=== PATIENT | male | born 1950 | race Caucasian/White ===

== ENCOUNTER 2021-01-11 23:39 | Inpatient (IN) | payer MEDICARE, MEDICAID ==
[2021-01-12 00:12] LABS: #Monocytes 1.7 10x3/uL (0.0-1.1); %Basophils 0.1 % (0.0-2.0); %Eosinophils 0.1 % (0.0-6.0); %Lymphocytes 10.2 % (18.0-47.0); %Neutrophils 78.2 % (40.0-75.0); Hemoglobin 14.4 g/dL (13.5-17.5); Mean Corpuscular Hemoglobin 29.3 pg (27.0-33.0); Mean Corpuscular Volume 94.5 fl (81.2-95.1); Mean Platelet Volume 11.1 fl (7.4-10.4); Platelet Count 295 10x3/uL (150-450); RBC Distribution Width 15.9 % (11.5-14.5); Red Blood Cell (RBC) Count 4.92 10x6/uL (4.32-5.72); White Blood Cell (WBC) Count 15.3 10x3/uL (3.5-10.5)
[2021-01-12] MEDS ORDERED: Nitroglycerin 2% Ointment 1 INCH/1 GM Packet ONE (00:18)
[2021-01-12] MEDS ORDERED: Furosemide 40 MG/4 ML VIAL ONE (00:18)
[2021-01-12 01:07] LABS: ALT (SGPT) 452 U/L (8-55); AST (SGOT) 271 U/L (5-34); Albumin 3.6 g/dL (3.4-4.8); Alkaline Phosphatase 146 U/L (40-110); Anion Gap 18 mmol/L (10-20); BUN (Urea Nitrogen) 49 mg/dL (8.4-25.7); Bilirubin, Total 1.6 mg/dL (0.2-1.2); Calc. Creatinine Clearance 0 mL/min (70-130); Calcium 8.6 mg/dL (7.8-10.44); Carbon Dioxide 23 mmol/L (23-31); Chloride 105 mmol/L (98-107); Glucose 78 mg/dL (83-110); Potassium 4.5 mmol/L (3.5-5.1); Protein, Total 6.6 g/dL (5.8-8.1); Sodium 141 mmol/L (136-145)
[2021-01-12 01:36] LABS: CKMB 20.7 ng/mL (0-6.6)
[2021-01-12] MEDS ORDERED: Aspirin Chewable 81 MG TAB ONE (02:12)
[2021-01-12] MEDS ORDERED: Lorazepam 2 MG/ML VIAL SLOW IVP PRN (03:18)
[2021-01-12] MEDS ORDERED: guaiFENesin 100 MG/5 ML UDCUP PO SCH (03:30)
[2021-01-12] MEDS: methylPREDNISolone Sod Succ 40 MG VIAL IVP SCH ×3 (04:35→22:00)
[2021-01-12 05:37] LABS: Bilirubin Neg (Negative); Blood, Urine 25 (Negative); Clarity Slightly Cloudy (Clear); Glucose, Urine (Dipstick) Normal (Negative); Ketone, Urine Negative (Negative); Leukocyte Negative (Negative); Nitrite Negative (Negative); Protein, Urine (Dipstick) 100 mg/dl (Neg-Trace); Urobilinogen Normal mg/dL (Less than 2)
[2021-01-12 05:55] LABS: Bacteria/HPF 1+ HPF (None Seen); Squamous Epithelial 0-3 HPF (0-3); WBC/HPF 0-3 HPF (0-3)
[2021-01-12] MEDS: Furosemide 40 MG/4 ML VIAL SLOW IVP SCH ×2 (06:01→15:03)
[2021-01-12 06:04] LABS: Troponin I 0.094 ng/mL (< 0.028)
[2021-01-12] MEDS: Nicotine 21 MG PATCH TD SCH (09:50)
[2021-01-12] MEDS: Enoxaparin Sodium 30 MG/0.3 ML SYRINGE SC SCH ×2 (09:50→10:20)
[2021-01-12] MEDS: guaiFENesin ER 600 MG TAB PO SCH ×2 (09:50→22:00)
[2021-01-12] MEDS: Aspirin Chewable 81 MG TAB PO SCH (09:50)
[2021-01-12] MEDS: Lisinopril 5 MG TAB PO SCH (09:50)
[2021-01-12] MEDS: Carvedilol 3.125 MG TAB PO SCH ×2 (09:50→22:00)
[2021-01-12] MEDS: Spironolactone 25 MG TAB PO SCH (09:53)
[2021-01-12] MEDS: Mometasone/Formoterol 200/5 60 PUFF INH SCH ×2 (10:20→20:23)
[2021-01-12 10:51] LABS: Troponin I 0.084 ng/mL (< 0.028)
[2021-01-12 10:54] LABS: CKMB 17.1 ng/mL (0-6.6)
[2021-01-12 12:29] LABS: SARS-CoV-2 PCR by NAA Not Detected (NotDetected)
[2021-01-12] MEDS ORDERED: Albuterol Sulfate 2.5 mg/3 ml Neb NEB PRN (19:23)
[2021-01-12] MEDS: Albuterol Sulfate 2.5 mg/3 ml Neb NEB SCH ×3 (20:24→20:26)
[2021-01-12] MEDS: Atorvastatin Calcium 40 MG TAB PO SCH (22:00)
[2021-01-13 04:45] LABS: #Monocytes 0.6 10x3/uL (0.0-1.1); #Neutrophils 7.1 10x3/uL (1.5-8.4); %Lymphocytes 5.5 % (18.0-47.0); %Monocytes 7.1 % (0.0-10.0); %Neutrophils 86.9 % (40.0-75.0); Hemoglobin 12.4 g/dL (13.5-17.5); Mean Corpuscular HGB CONC 31.6 g/dL (32.0-36.0); Mean Corpuscular Hemoglobin 28.8 pg (27.0-33.0); Mean Corpuscular Volume 91.4 fl (81.2-95.1); Mean Platelet Volume 10.1 fl (7.4-10.4); Platelet Count 231 10x3/uL (150-450); RBC Distribution Width 15.4 % (11.5-14.5); White Blood Cell (WBC) Count 8.2 10x3/uL (3.5-10.5)
[2021-01-13 05:04] LABS: Anion Gap 15 mmol/L (10-20); BUN (Urea Nitrogen) 53 mg/dL (8.4-25.7); Calc. Creatinine Clearance 53 mL/min (70-130); Calcium 8.1 mg/dL (7.8-10.44); Carbon Dioxide 29 mmol/L (23-31); Chloride 100 mmol/L (98-107); Glucose 173 mg/dL (83-110); Potassium 4.1 mmol/L (3.5-5.1); Sodium 140 mmol/L (136-145)
[2021-01-13] MEDS: Mometasone/Formoterol 200/5 60 PUFF INH SCH ×2 (06:00→20:05)
[2021-01-13] MEDS: Furosemide 40 MG/4 ML VIAL SLOW IVP SCH ×2 (06:00→16:00)
[2021-01-13] MEDS: methylPREDNISolone Sod Succ 40 MG VIAL IVP SCH ×2 (06:00→14:30)
[2021-01-13] MEDS: Nicotine 21 MG PATCH TD SCH (13:30)
[2021-01-13] MEDS: Spironolactone 25 MG TAB PO SCH (13:30)
[2021-01-13] MEDS: Lisinopril 5 MG TAB PO SCH (13:30)
[2021-01-13] MEDS: Aspirin Chewable 81 MG TAB PO SCH (13:31)
[2021-01-13] MEDS: Carvedilol 3.125 MG TAB PO SCH ×2 (13:31→20:13)
[2021-01-13] MEDS: Enoxaparin Sodium 30 MG/0.3 ML SYRINGE SC SCH (13:58)
[2021-01-13] MEDS: guaiFENesin ER 600 MG TAB PO SCH ×2 (13:58→21:25)
[2021-01-13] MEDS: Atorvastatin Calcium 40 MG TAB PO SCH (20:13)
[2021-01-14 05:46] LABS: #Monocytes 2.1 10x3/uL (0.0-1.1); #Neutrophils 13.7 10x3/uL (1.5-8.4); %Basophils 0.1 % (0.0-2.0); %Lymphocytes 4.1 % (18.0-47.0); %Monocytes 12.6 % (0.0-10.0); %Neutrophils 82.6 % (40.0-75.0); Hemoglobin 13.8 g/dL (13.5-17.5); Mean Corpuscular HGB CONC 31.2 g/dL (32.0-36.0); Mean Corpuscular Hemoglobin 28.6 pg (27.0-33.0); Mean Corpuscular Volume 91.9 fl (81.2-95.1); Mean Platelet Volume 9.4 fl (7.4-10.4); Platelet Count 266 10x3/uL (150-450); RBC Distribution Width 15.9 % (11.5-14.5); Red Blood Cell (RBC) Count 4.82 10x6/uL (4.32-5.72); White Blood Cell (WBC) Count 16.6 10x3/uL (3.5-10.5)
[2021-01-14] MEDS: Furosemide 40 MG/4 ML VIAL SLOW IVP SCH ×4 (05:54→15:25)
[2021-01-14] MEDS: Mometasone/Formoterol 200/5 60 PUFF INH SCH ×2 (05:55→20:36)
[2021-01-14 06:00] LABS: Anion Gap 16 mmol/L (10-20); BUN (Urea Nitrogen) 51 mg/dL (8.4-25.7); Calc. Creatinine Clearance 0 mL/min (70-130); Calcium 8.7 mg/dL (7.8-10.44); Carbon Dioxide 30 mmol/L (23-31); Chloride 101 mmol/L (98-107); Glucose 103 mg/dL (83-110); Magnesium 1.6 mg/dL (1.6-2.6); Potassium 4.4 mmol/L (3.5-5.1); Sodium 143 mmol/L (136-145)
[2021-01-14] MEDS: predniSONE 20 MG TAB PO SCH (09:01)
[2021-01-14] MEDS: Aspirin Chewable 81 MG TAB PO SCH (09:01)
[2021-01-14] MEDS: Lisinopril 5 MG TAB PO SCH (09:02)
[2021-01-14] MEDS: guaiFENesin ER 600 MG TAB PO SCH ×2 (09:02→21:45)
[2021-01-14] MEDS: Spironolactone 25 MG TAB PO SCH (09:03)
[2021-01-14] MEDS: Carvedilol 3.125 MG TAB PO SCH (09:03)
[2021-01-14] MEDS: Enoxaparin Sodium 30 MG/0.3 ML SYRINGE SC SCH (09:04)
[2021-01-14] MEDS: Nicotine 21 MG PATCH TD SCH (09:05)
[2021-01-14] MEDS: Atorvastatin Calcium 40 MG TAB PO SCH (21:45)
[2021-01-14] MEDS: Carvedilol 12.5 MG TAB PO SCH (21:45)
[2021-01-15] MEDS ORDERED: Digoxin 0.5 MG/2 ML AMP SLOW IVP SCH (04:00)
[2021-01-15] MEDS: Furosemide 40 MG/4 ML VIAL SLOW IVP SCH ×2 (05:30→14:05)
[2021-01-15 06:35] LABS: Anion Gap 15 mmol/L (10-20); BUN (Urea Nitrogen) 58 mg/dL (8.4-25.7); Calc. Creatinine Clearance 0 mL/min (70-130); Calcium 8.1 mg/dL (7.8-10.44); Carbon Dioxide 34 mmol/L (23-31); Chloride 99 mmol/L (98-107); Glucose 115 mg/dL (83-110); Magnesium 1.6 mg/dL (1.6-2.6); Potassium 3.9 mmol/L (3.5-5.1); Sodium 144 mmol/L (136-145)
[2021-01-15] MEDS: Mometasone/Formoterol 200/5 60 PUFF INH SCH ×2 (06:57→19:30)
[2021-01-15] MEDS ORDERED: Enoxaparin Sodium 30 MG/0.3 ML SYRINGE ONE (08:25)
[2021-01-15] MEDS: Nicotine 21 MG PATCH TD SCH (09:27)
[2021-01-15] MEDS: Aspirin Chewable 81 MG TAB PO SCH (09:27)
[2021-01-15] MEDS: predniSONE 20 MG TAB PO SCH (09:28)
[2021-01-15] MEDS: guaiFENesin ER 600 MG TAB PO SCH ×2 (09:28→21:26)
[2021-01-15] MEDS: Spironolactone 25 MG TAB PO SCH (09:28)
[2021-01-15] MEDS: Carvedilol 12.5 MG TAB PO SCH ×2 (09:28→21:26)
[2021-01-15] MEDS: Enoxaparin Sodium 30 MG/0.3 ML SYRINGE SC SCH (09:29)
[2021-01-15] MEDS: Lisinopril 10 MG TAB PO SCH (09:35)
[2021-01-15] MEDS: Atorvastatin Calcium 40 MG TAB PO SCH (21:26)
[2021-01-16 06:15] LABS: BUN (Urea Nitrogen) 60 mg/dL (8.4-25.7); Calc. Creatinine Clearance 77 mL/min (70-130); Calcium 8.1 mg/dL (7.8-10.44); Glucose 106 mg/dL (83-110)
[2021-01-16 06:16] LABS: Anion Gap 17 mmol/L (10-20); Carbon Dioxide 33 mmol/L (23-31); Chloride 97 mmol/L (98-107); Potassium 3.4 mmol/L (3.5-5.1); Sodium 144 mmol/L (136-145)
[2021-01-16] MEDS: Furosemide 40 MG/4 ML VIAL SLOW IVP SCH ×2 (06:25→14:21)
[2021-01-16] MEDS: Mometasone/Formoterol 200/5 60 PUFF INH SCH ×2 (08:57→23:51)
[2021-01-16] MEDS: predniSONE 20 MG TAB PO SCH (08:59)
[2021-01-16] MEDS: Carvedilol 12.5 MG TAB PO SCH ×2 (09:22→20:35)
[2021-01-16] MEDS: guaiFENesin ER 600 MG TAB PO SCH ×2 (09:22→20:36)
[2021-01-16] MEDS: Lisinopril 10 MG TAB PO SCH (09:22)
[2021-01-16] MEDS: Nicotine 21 MG PATCH TD SCH (09:23)
[2021-01-16] MEDS: Aspirin Chewable 81 MG TAB PO SCH (09:23)
[2021-01-16] MEDS: Spironolactone 25 MG TAB PO SCH (09:23)
[2021-01-16] MEDS: Enoxaparin Sodium 30 MG/0.3 ML SYRINGE SC SCH (09:23)
[2021-01-16] MEDS: Atorvastatin Calcium 40 MG TAB PO SCH (20:35)
[2021-01-17] MEDS: Furosemide 40 MG/4 ML VIAL SLOW IVP SCH ×2 (06:00→14:40)
[2021-01-17 06:27] LABS: Anion Gap 18 mmol/L (10-20); BUN (Urea Nitrogen) 60 mg/dL (8.4-25.7); Calc. Creatinine Clearance 0 mL/min (70-130); Carbon Dioxide 30 mmol/L (23-31); Chloride 95 mmol/L (98-107); Glucose 81 mg/dL (83-110); Potassium 3.7 mmol/L (3.5-5.1); Sodium 139 mmol/L (136-145)
[2021-01-17] MEDS: Mometasone/Formoterol 200/5 60 PUFF INH SCH ×2 (07:20→22:37)
[2021-01-17] MEDS: Nicotine 21 MG PATCH TD SCH (08:17)
[2021-01-17] MEDS: Aspirin Chewable 81 MG TAB PO SCH (08:17)
[2021-01-17] MEDS: Enoxaparin Sodium 30 MG/0.3 ML SYRINGE SC SCH (08:17)
[2021-01-17] MEDS: Lisinopril 10 MG TAB PO SCH (08:17)
[2021-01-17] MEDS: Carvedilol 12.5 MG TAB PO SCH ×2 (08:17→19:49)
[2021-01-17] MEDS: Spironolactone 25 MG TAB PO SCH (08:17)
[2021-01-17] MEDS: guaiFENesin ER 600 MG TAB PO SCH ×2 (08:17→19:49)
[2021-01-17] MEDS: predniSONE 20 MG TAB PO SCH (08:17)
[2021-01-17] MEDS: Atorvastatin Calcium 40 MG TAB PO SCH (19:49)
[2021-01-18] MEDS: Furosemide 40 MG/4 ML VIAL SLOW IVP SCH ×2 (06:29→14:04)
[2021-01-18 06:39] LABS: Anion Gap 17 mmol/L (10-20); BUN (Urea Nitrogen) 47 mg/dL (8.4-25.7); Calc. Creatinine Clearance 0 mL/min (70-130); Calcium 8.2 mg/dL (7.8-10.44); Carbon Dioxide 32 mmol/L (23-31); Chloride 98 mmol/L (98-107); Glucose 102 mg/dL (83-110); Potassium 3.9 mmol/L (3.5-5.1); Sodium 143 mmol/L (136-145)
[2021-01-18] MEDS: Mometasone/Formoterol 200/5 60 PUFF INH SCH (07:25)
[2021-01-18 08:12] VITALS: TEMP 98.3
[2021-01-18] MEDS ORDERED: Enoxaparin Sodium 30 MG/0.3 ML SYRINGE ONE (09:03)
[2021-01-18] MEDS: Enoxaparin Sodium 30 MG/0.3 ML SYRINGE SC SCH (09:05)
[2021-01-18] MEDS: Aspirin Chewable 81 MG TAB PO SCH (09:05)
[2021-01-18] MEDS: predniSONE 20 MG TAB PO SCH (09:05)
[2021-01-18] MEDS: Spironolactone 25 MG TAB PO SCH (09:05)
[2021-01-18] MEDS: Nicotine 21 MG PATCH TD SCH (09:05)
[2021-01-18] MEDS: Lisinopril 10 MG TAB PO SCH (09:05)
[2021-01-18] MEDS: Carvedilol 12.5 MG TAB PO SCH (09:05)
[2021-01-18] MEDS: guaiFENesin ER 600 MG TAB PO SCH (09:05)
[2021-01-18 13:38] VITALS: BP 113/72
== END 2021-01-18 14:37 | disposition home or self-care (01) | DRG 291 ==
LOC: CSHERS 23:39 → OBSVTOIN 01-12 02:50 → CSHTELE 01-12 02:50
PROVIDERS: ADMIT Family Medicine; ATTEND Hospitalist
DX: I50.21 Acute systolic (congestive) heart failure (principal); G92 Toxic encephalopathy; J44.1 Chronic obstructive pulmonary disease with (acute) exacerbation; N18.4 Chronic kidney disease, stage 4 (severe); I42.8 Other cardiomyopathies; Z20.822 Contact with and (suspected) exposure to COVID-19; I48.0 Paroxysmal atrial fibrillation; I25.10 Atherosclerotic heart disease of native coronary artery without angina pectoris; F17.210 Nicotine dependence, cigarettes, uncomplicated; F15.10 Other stimulant abuse, uncomplicated; R79.89 Other specified abnormal findings of blood chemistry; Z91.14 Patient's other noncompliance with medication regimen; Z86.73 Personal history of transient ischemic attack (TIA), and cerebral infarction without residual deficits; Z59.0 Homelessness
CPT/HCPCS: 36415; 36416; 71045; 80048; 80053; 81001; 82553; 83735; 83880; 84443; 84484; 85025; 87635; 93005; 93010; 94760; 96374; J1160; J1650; J1940; J2920; J7512; U0003; U0005